=== PATIENT | female | born 1975 | race Two or more races ===

== ENCOUNTER 2018-06-03 02:59 | Emergency (ER) | payer SELFPAY ==
[~2018-06-03] VITALS: Ht 165.1 cm; Wt 63.5 kg
[2018-06-03] MEDS ORDERED: ACETAMINOPHEN 325 MG TABLET PO ONE (03:15)
[2018-06-03] MEDS ORDERED: TDAP DIPH,PERTUSS,TET VAC/PF 0.5 ML DISP.SYRIN IM ONE ×2 (03:15→03:36)
--- NOTE | 2018-06-03 03:16 | NUR ---
Pt bib [id number] with c/o head injury after a metal omaira hanging from the ceiling & landing on her head. 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 Denies LOC/N/V. Small abrasion noted on top of forehead.
[2018-06-03] MEDS ORDERED: ACETAMINOPHEN ES 500 MG TABLET ONE (03:26)
--- NOTE | 2018-06-03 04:06 | NUR ---
Pt went down to radiology dept for CT scan.
--- NOTE | 2018-06-03 04:13 | NUR ---
Pt back from CT scan, back to room 03A.
--- NOTE | 2018-06-03 04:52 | NUR ---
Pt requesting wound (0.5 cm) to be sutured. No bleeding noted.
--- NOTE | 2018-06-03 04:57 | NUR ---
Pt changed her mind, refuses stitches. notified.
[2018-06-03] MEDS ORDERED: LIDOCAINE 1%-EPI 1:100,000 20 ML VIAL TP ONE (05:00)
--- NOTE | 2018-06-03 05:02 | NUR ---
Patient discharged to home in stable conditon. Written and verbal after care instructions given. Patient verbalizes understanding of instructions. Pt ambulated out of ER w stable gait with daughter & . No acute distress noted. All belongings w pt. VSS.
[2018-06-03 05:09] VITALS: BP 138/79
== END 2018-06-03 05:17 | disposition home or self-care (01) ==
LOC: ER 03:01
DX: S01.01XA Laceration without foreign body of scalp, initial encounter (principal); Z23 Encounter for immunization; W01.198A Fall on same level from slipping, tripping and stumbling with subsequent striking against other object, initial encounter; Y93.89 Activity, other specified; Y92.89 Other specified places as the place of occurrence of the external cause; Y99.8 Other external cause status
CPT/HCPCS: 70450; 90715; A4663; A9150